=== PATIENT | female | born 1940 | race Caucasian/White ===

== ENCOUNTER 2018-04-14 11:33 | Day surgery (SDC) | payer MEDICARE ==
[2018-04-13 12:26] VITALS: BMI 26.6
[2018-04-14 13:40] VITALS: BP 218/94; TEMP 98.2
--- NOTE | 2018-04-14 14:43 | ULT ---
THYROID ULTRASOUND: HISTORY: Possible thyroid masses. COMPARISON: None. CORRELATION: Outside CT performed on 03/23/2018. TECHNIQUE: Sagittal and transverse imaging of the thyroid gland is performed. FINDINGS: The thyroid isthmus is 0.2 cm. The right thyroid lobe measures 1.5 x 1.4 x 3.8 cm. There are small less than 1 cm hypoechoic areas in the right thyroid lobe. The largest lesion measures 0.4 cm x 3.5 x 1.3 cm. There is an anechoic lesion in the left thyroid lobe measuring 1.0 x 1.1 x 0.9 cm with a TIRADS calculator score of TR3. There is a second similar-appearing lesion measuring 0.9 x 0.5 cm. IMPRESSION: Two discrete predominantly cystic lesions with small areas of solid echotexture. Fine needle aspirat ion of both lesions will performed given that the patient presented for an ultrasound-guided fine nee dle aspiration. Based upon TIRADS calculation, the lesions could be followed up in 6 months. Results of the study discussed with both the patient and with Dr. Long 04/14/2018 at 1:54 p.m. CODE KATLYN POS: JEANA
== END 2018-04-14 14:00 | disposition home or self-care (01) ==
LOC: ULT 11:33
PROVIDERS: ATTEND Otolaryngology Plastic Surgery within the Head & Neck
DX: E04.1 Nontoxic single thyroid nodule (principal); I10 Essential (primary) hypertension; K21.9 Gastro-esophageal reflux disease without esophagitis
CPT/HCPCS: 76536